=== PATIENT | female | born 1980 ===

== ENCOUNTER 2018-04-01 13:45 | Outpatient (REF) | payer MEDICAID, SELFPAY ==
--- NOTE | 2018-04-01 10:45 | PAPFT_PTH ---
PATIENT: Renetta Thomas LOC: [facility] U#:[id number] AGE/SX: 37/F ROOM: RE04/01/[address]: Mary Dickson : 1980 BED: DIS: 04/01/2018 SPEC #: [id number] RECD: 04/02/18 13:03 STATUS: MARKY RERiddhi #: [id number] WENDIE: 04/01/18 10:[address]: Mary Dickson DEPT: [facility] Cytology RECD BY: Tg Ghotra Tissues: 1 - CX/ENDOCX FOR PAP SMEARS Procedures: PAP THIN PREP/[facility] Screening HPV DNA PROBE Comments: [id number]
[2018-04-01 21:28] LABS: Cholesterol 169 mg/dL (50-200); HDL Cholesterol 50 mg/dL (40-60); LDL CHOLESTEROL 108 mg/dL (<100); Triglyceride 112 mg/dL (30-150)
== END 2018-04-01 14:05 ==
LOC: NCHCN 13:45
PROVIDERS: PCP Registered Nurse; Visit Provider Registered Nurse
DX: M79.673 Pain in unspecified foot (principal); H92.03 Otalgia, bilateral; Z00.00 Encounter for general adult medical examination without abnormal findings; Z12.4 Encounter for screening for malignant neoplasm of cervix; Z11.51 Encounter for screening for human papillomavirus (HPV)
CPT/HCPCS: 80061; 83721; 88142; 87624

== ENCOUNTER 2023-08-30 16:50 | Outpatient (REF) | payer BC, SELFPAY ==
--- NOTE | 2023-08-30 14:50 | PAPFT_PTH ---
PATIENT: Renetta Thomas LOC: [facility] U#:[id number] AGE/SX: 43/F ROOM: RE08/30/[address]: Marcelle Henriquez : 1980 BED: DIS: 08/30/2023 SPEC #: [id number] RECD: 08/31/23 12:54 STATUS: MARKY RERiddhi #: [id number] WENDIE: 08/30/23 14:[address]: Marcelle Henriquez DEPT: [facility] Cytology RECD BY: Tg Ghotra ENTERED: 08/31/23 12:54 SP TYPE: PAPFT OTHR DR: Mary Dickson Tissues: 1 - CX/ENDOCX FOR PAP SMEARS Procedures: PAP THIN PREP/[facility] Screening HPV DNA PROBE Comments: [id number]
[2023-08-30 23:13] LABS: HCT 42.4 % (36.0-46.0); HGB 14.4 g/dL (11.2-15.7); MCH 29.1 pg (27.0-33.0); MCV 86 fL (80-95); MPV 12.8 fL (8.0-11.0); Platelet Count 200 10^3/uL (130-400); RBC 4.95 10^6/uL (3.93-5.22); RDW 12.6 % (11.7-14.6); RDW-SD 39.2 fL; WBC 5.73 10^3/uL (4.4-10.8)
[2023-08-30 23:26] LABS: ALT 17 U/L (14-59); AST 16 U/L (15-37); Albumin 3.7 g/dL (3.4-5.0); Alkaline Phosphatase 97 U/L (46-116); Anion Gap 10.1 mmol/L (3-11); BUN 17 mg/dL (7-18); Bilirubin, Total 0.3 mg/dL (0.2-1.0); CO2 26.9 mmol/L (21.0-32.0); CREATININE 0.8 mg/dL (0.55-1.02); Calcium 9.1 mg/dL (8.5-10.1); Chloride 104 mmol/L (98-107); Estimated GFR 94.87 (mL/min/1.73m2); Glucose 84 mg/dL (74-106); Potassium 3.4 mmol/L (3.5-5.1); Sodium 141 mmol/L (136-145); Total Protein 7.6 g/dL (6.4-8.2)
[2023-08-30 23:35] LABS: Hemoglobin A1C 5.4 % (<5.7)
[2023-08-30 23:47] LABS: Calculated LDL 125 mg/dL (<100); Cholesterol 204 mg/dL (<200); HDL Cholesterol 54 mg/dL (40-60); Triglyceride 126 mg/dL (<150)
== END 2023-08-30 16:51 | disposition home or self-care (01) ==
LOC: NCHCN 16:50
PROVIDERS: PCP Registered Nurse; Visit Provider Family Medicine
DX: Z00.00 Encounter for general adult medical examination without abnormal findings (principal); Z13.1 Encounter for screening for diabetes mellitus
CPT/HCPCS: 80053; 80061; 85027; 88142; 83036; 87624